=== PATIENT | female | born 1930 | race Hispanic/Latino ===

== ENCOUNTER 2021-03-13 09:28 | Day surgery (SDC) | payer OTHER ==
[2021-03-08 09:28] VITALS: BP 144/76
[2021-03-08 14:06] LABS: BASOPHILS % (AUTO) 0.3 % (0.0-5.0); EOSINOPHILS % (AUTO) 1.5 % (0.0-8.0); HEMATOCRIT 40.7 % (36-48); LYMPHOCYTES % (AUTO) 26.8 % (21.0-51.0); MEAN CORPUSCULAR HEMOGLOBIN 30.3 pg (27.0-33.0); MEAN CORPUSCULAR HGB CONC 32.4 g/dL (32.0-36.0); MEAN CORPUSCULAR VOLUME 93.6 fL (79-99); MONOCYTES % (AUTO) 12.1 % (3.0-13.0); NEUTROPHILS % (AUTO) 58.9 % (40.0-77.0); PLATELET COUNT (AUTO) 194 K/uL (130-400); RED BLOOD CELL COUNT(AUTO) 4.35 MIL/uL (4.00-5.50); WHITE BLOOD COUNT (AUTO) 6.7 K/uL (4.8-10.8)
[2021-03-08 14:12] LABS: CREATININE 0.8 mg/dL (0.5-1.5); POTASSIUM 4.7 mmol/L (3.5-5.1)
[2021-03-08 14:16] LABS: INR 1.1 (0.85-1.15); PROTHROMBIN TIME 11.9 SEC (9.6-11.6)
[2021-03-08 14:17] LABS: PARTIAL THROMBOPLASTIN TIME 27.1 SEC (26.3-35.5)
[~2021-03-13] VITALS: Ht 162.6 cm; Wt 64.0 kg
[2021-03-13] VITALS (9 sets, daily range): BP systolic 121–142; BP diastolic 46–69
[~2021-03-13 09:28] MED LIST: 0.9% NACL 500ML IV.SOLN 500 ML IV SCH; APIX5TAB PO; ATOR20TA65 PO; CEFAZOLIN SODIUM 1 GM VIAL IVP SCH; DIGO125T71 PO; LEVO75TA4 PO; METO25TA6 PO
[2021-03-13] MEDS ORDERED: 0.9%NACL 1000ML 1,000 ML IV ONE (11:07)
[2021-03-13] MEDS ORDERED: CEFAZOLIN SODIUM 1 GM VIAL ONE ×3 (16:49→17:04)
[2021-03-13] MEDS ORDERED: MIDAZOLAM HCL 1 MG/ML 2ML VIAL ONE (16:49)
[2021-03-13] MEDS ORDERED: IOHEXOL-350 50ML VIAL IV ONE (16:49)
[2021-03-13] MEDS ORDERED: LIDOCAINE HCL 1% MDV 50ML VIAL ONE (16:50)
[2021-03-13] MEDS ORDERED: FENTANYL CITRATE PF 50 MCG/1 ML 2ML VIAL ONE (16:50)
[2021-03-13] MEDS ORDERED: MEPERIDINE-PF 25 MG/ML SYG ONE (17:05)
[2021-03-13] MEDS ORDERED: ACETAMINOPHEN WITH CODEINE 1 TAB TAB PO PRN (18:30)
[2021-03-13] MEDS ORDERED: TRAM50TA4 PO (18:34)
== END 2021-03-13 21:20 | disposition home or self-care (01) ==
LOC: DAH 09:28
PROVIDERS: ATTEND Internal Medicine Cardiovascular Disease
DX: I49.5 Sick sinus syndrome (principal); I48.19 Other persistent atrial fibrillation; I10 Essential (primary) hypertension; E03.9 Hypothyroidism, unspecified; E78.00 Pure hypercholesterolemia, unspecified; Z98.890 Other specified postprocedural states; Z95.0 Presence of cardiac pacemaker; Z79.01 Long term (current) use of anticoagulants; Z86.73 Personal history of transient ischemic attack (TIA), and cerebral infarction without residual deficits; Z79.899 Other long term (current) drug therapy
CPT/HCPCS: 33208; 36415; 71045; 80048; 85025; 85610; 85730; 93005; 99156; 99157; A4606; C1785; J0690; J2175; J2250; J3010; J3490; J7030; Q9967

== ENCOUNTER → 2021-07-06 | Outpatient (CLI) | payer OTHER ==
[~2021-07-06] MED LIST changes: -0.9% NACL 500ML IV.SOLN 500 ML IV SCH; -CEFAZOLIN SODIUM 1 GM VIAL IVP SCH; +TRAM50TA4 PO
[2021-07-06 12:25] LABS: CREATININE 1.1 mg/dL (0.5-1.5); MAGNESIUM 1.8 mg/dL (1.80-2.40)
== END | disposition home or self-care (01) ==
LOC: LAB 10:38
PROVIDERS: ATTEND Physician Assistant
DX: I48.91 Unspecified atrial fibrillation (principal); I10 Essential (primary) hypertension
CPT/HCPCS: 36415; 80048; 83735